=== PATIENT | male | born 1950 ===

== ENCOUNTER 2022-06-28 15:39 | Emergency (ER) | payer MEDICARE ==
[~2022-06-28 15:39] MED LIST: AMOX TR-K CLV1 EAC4 PO; ARICEPT10 MG PO; ASPIRIN EC81 MG PO; ATIVAN1 MG PO; ATORVASTATIN CA20 MG PO; CHRONULAC20 GM/30 M PO; COUMADIN 5MG TAB5 MG PO; CYMBALTA 30 MG30 MG PO; ELIQUIS 5 MG TAB5 MG PO; FERROUS SULFAT325 M2 PO; FUROSEMIDE20 MG PO; LISINOPRIL5 MG PO; LOPRESSOR 25 MG25 MG PO; MELATONIN10 MG PO; NAMENDA10 MG PO; NYSTOP60 GM TOP; PANTOPRAZOLE SO40 MG PO; PERCOCET 5/325 T1 EA PO; QUETIAPINE FUMA25 MG PO; SEROQUEL100 MG PO; VITAMIN B-121000 MCG PO; WARFARIN SODIUM5 MG PO; ZOLOFT100 MG PO
[2022-06-28] MEDS ORDERED: CEPHALEXIN500 MG PO (20:04)
== END 2022-06-28 21:36 | disposition home or self-care (01) ==
LOC: ER1 15:39
DX: N30.00 Acute cystitis without hematuria (principal); M25.551 Pain in right hip; M25.552 Pain in left hip; I50.9 Heart failure, unspecified
CPT/HCPCS: 72131; 73522; 81001; 93005; 96372; 99284; J0696